=== PATIENT | female | born 1940 | race Caucasian/White ===

== ENCOUNTER 2024-02-21 08:19 | Day surgery (SDC) | payer MEDICARE, OTHER, SELFPAY ==
[2024-02-21] VITALS (19 sets, daily range): BP systolic 133–190; BP diastolic 54–80; BMI 23.0
[2024-02-21 09:09] LABS: Hematocrit 31.7 % (37.0-47.0); Hemoglobin 10.8 g/dL (12.0-16.0); Mean Corp Hgb Conc. 34.1 g/dL (33.0-37.0); Mean Corpuscular Hgb 42.4 pg (27.0-31.0); Mean Corpuscular Volume 124.3 fL (81.0-99.0); Mean Platelet Volume 9.9 fL (7.4-10.4); Platelet Count 405 10^3/uL (130-400); Red Blood Cell Count 2.55 10^6/uL (4.20-5.40); Red Cell Dist. Width 15.9 % (11.5-14.5); White Blood Cell Count 6.5 10^3/uL (4.8-10.8)
[2024-02-21 09:23] LABS: INR 1.73; PT 20.4 Sec (11.4-14.6)
[2024-02-21 09:41] LABS: Blood Urea Nitrogen 14 mg/dl (7-17); Carbon Dioxide 29 mmol/L (22-30); Chloride 102 mmol/L (98-107); Estimated Creatinine Clearance 60 ml/min; Glucose 102 mg/dl (70-99); Potassium 4.1 mmol/L (3.5-5.1); Sodium 138 mmol/L (135-145); eGFR > 60.00
--- NOTE | 2024-02-21 11:21 | ITS.CL.PACE ---
[employer] - Pacemaker Implant
Pacemaker Implant
Procedure Report:
Date of Procedure: February 21, 2024
Patient : 1940
Procedure: Pacemaker Implantation.
Indication: Sick sinus syndrome
Implants:
Pulse Generator: Medtronic; Model# W1 DR 01; SN: [id number]
RA Lead: Medtronic; Model# 4574; SN: [id number]
RV Lead: Medtronic; Model# 4074; SN: [id number]
Technique: A time out was performed. The procedure site was identified. The patient was anesthetized by the anesthesia service. Preoperative sedation was administered. The patient was prepped and draped in the usual fashion. Local anesthetic was
applied to the left prepectoral subcutaneous tissue. A 3 inch incision was made 2.5 inches below the left clavicle. A subcutaneous pocket was created with blunt and sharp dissection and hemostasis controlled with Bovie cautery. The left axillary
vein was accessed within the pocket without difficulty. Hemostasis was excellent. The leads were introduced with 7 Fr hemostatic peel away introducer sheaths. The ventricular lead was placed at the right ventricular apex. The atrial lead was placed
in the right atrial appendage. 10 volt pacing did not capture the diaphragm. The leads were secured to the pectoralis muscle and fascia. The leads were appropriately attached to the device. The pocket was irrigated with antibiotic solution. The
device and leads were placed in the pocket. The incision was closed in three layers with absorbable suture. The estimated blood loss was minimal. There were no complications.
Lead Analysis:
RA lead: P: 1.2 mV; Threshold: 0.75 V @ 0.5 ms; Impedance: 608 ohms.
RV lead: R: 8.9 mV; Threshold: 0.5 V @ 0.5 ms; Impedance: 950 ohms.
Final Programming: AAIR�DDDR 6030
Conclusion: Uncomplicated Medtronic pacemaker implant.
Recommendation: Routine post pacemaker care.
[2024-02-21] MEDS: ANCEF 5 IV (16:52)
[2024-02-21] MEDS: TYLENOL 650 MG PO ×2 (17:07→21:26)
--- NOTE | 2024-02-21 18:45 | PTCARENOTE ---
Received pt from cath lab radiology technician via , accompanied by cath lab radiology technician staff. Pt AAOx3,PENN; LUE immobilizer in place. Pt transferred to be with minimal assistance, no c/o weakness/dizziness. VSS. PLaced on [id number] rhythm. On room air- pulse ox 96%,
no SOB noted; pt with occ dry cough. Abd soft, non-tender. Pt DTV; instructed to call for assistance to BR. Lt ACW Aquacell dsg intact; old drainage noted. Circ/neuro check to JEANINE DAS. Oriented to 4East, currently resting comfortably. Will
continue to monitor.
[2024-02-21] MEDS: ZESTRIL 5 MG PO (21:27)
[2024-02-21] MEDS: LOPRESSOR 50 MG PO (21:30)
[2024-02-21] MEDS: CRESTOR 10 MG PO (23:07)
[2024-02-21] MEDS: HYDREA 500 MG PO (23:08)
[2024-02-21] MEDS: CARDIZEM CD 180 MG PO (23:14)
[2024-02-21] MEDS: PACERONE 100 MG PO (23:14)
[2024-02-22] MEDS: ANCEF 5 IV (00:56)
[2024-02-22 03:48] VITALS: BP 156/73
[2024-02-22 05:56] LABS: Hematocrit 29.7 % (37.0-47.0); Hemoglobin 10.3 g/dL (12.0-16.0); Mean Corp Hgb Conc. 34.7 g/dL (33.0-37.0); Mean Corpuscular Hgb 42.6 pg (27.0-31.0); Mean Corpuscular Volume 122.7 fL (81.0-99.0); Mean Platelet Volume 9.8 fL (7.4-10.4); Platelet Count 377 10^3/uL (130-400); Red Blood Cell Count 2.42 10^6/uL (4.20-5.40); Red Cell Dist. Width 15.2 % (11.5-14.5); White Blood Cell Count 9.4 10^3/uL (4.8-10.8)
[2024-02-22 06:11] LABS: INR 1.67; PT 19.8 Sec (11.4-14.6)
[2024-02-22 06:37] LABS: Blood Urea Nitrogen 11 mg/dl (7-17); Calcium 8.8 mg/dl (8.4-10.2); Carbon Dioxide 26 mmol/L (22-30); Chloride 103 mmol/L (98-107); Estimated Creatinine Clearance 70 ml/min; Glucose 121 mg/dl (70-99); Magnesium 2.1 mg/dl (1.6-2.3); Potassium 4.3 mmol/L (3.5-5.1); Sodium 137 mmol/L (135-145); eGFR > 60.00
[2024-02-22] MEDS: LOW STRENGTH ASPIRIN 81 MG PO (09:06)
[2024-02-22] MEDS: LOPRESSOR 50 MG PO (09:06)
[2024-02-22] MEDS: PACERONE 100 MG PO (09:06)
[2024-02-22] MEDS: FLUSH (NSS) 1 FLUSH IV (09:08)
[2024-02-22] MEDS: HYDREA 500 MG PO (09:08)
--- NOTE | 2024-02-22 09:31 | W.PN.CARDCBS ---
Addendum entered and electronically signed by Isac Wilson MD 02/22/24 10:34:
patient seen and examined
agree with EYEGLASS FITTER note
agree with director social service assessment
spoke with daughter by phone this morning communicating details of procedure
exam:
heent ncat
jvp 6
aao x 3
feels better
site cdi no hematoma
remainder of exam per EYEGLASS FITTER note
Impression:
Symptomatic SSS with syncope
PAF prior PVI 2019
PAT post LAT ablation 03/01/23
HTN
HLD
mild-mod AI
Anemia
Thrombocythemia
RBBB
epistaxis
Plan:
post DC PPM 02/21/24
site stable with marked old drainage
tele Apaced with RBBB
CXR no PTX
Resume Coumadin tonight, Check INR on Tue goal 2-3
continue amiodarone, metoprolol, diltiazem
Activity restrictions reviewed
inc check dca 1 week
home today
Original Note:
Today's Communication / Plan
-
stable for d/c home
Impression / Plan
-
PCP: Dr. Tony
CDY: Krunal Villa MD
Impression:
Symptomatic SSS with syncope
PAF prior PVI 2019
PAT post LAT ablation 03/01/23
HTN
HLD
mild-mod AI
Anemia
Thrombocythemia
RBBB
epistaxis
Plan:
post DC PPM 02/21/24
site stable with marked old drainage
tele Apaced with RBBB
CXR no PTX
Resume Coumadin tonight, Check INR on Tue goal 2-3
continue amiodarone, metoprolol, diltiazem
Activity restrictions reviewed
inc check dca 1 week
home today
Progress Note - Refrigerator Mover
Subjective
Date of Service: February 22, 2024
no cp, sob
Objective
Labs:
02/22/24 05:41
02/22/24 05:41
Labs
Hgb 10.3 g/dL (12.0-16.0) L 02/22/24 05:41
Hct 29.7 % (37.0-47.0) L 02/22/24 05:41
Plt Count 377 10^3/uL (130-400) 02/22/24 05:41
PT 19.8 Sec (11.4-14.6) H 02/22/24 05:41
INR 1.67 02/22/24 05:41
Sodium 137 mmol/L (135-145) 02/22/24 05:41
Potassium 4.3 mmol/L (3.5-5.1) 02/22/24 05:41
BUN 11 mg/dl (7-17) 02/22/24 05:41
Creatinine 0.6 mg/dL (0.6-1.0) 02/22/24 05:41
Glucose 121 mg/dl (70-99) H 02/22/24 05:41
Vital Signs and I&O:
Vital Signs
Temp Pulse Resp BP Pulse Ox
97.7 F 61 18 156/73 93
02/22/24 03:48 02/22/24 03:48 02/22/24 03:48 02/22/24 03:48 02/22/24 03:48
Vital Signs
Temp Pulse Resp BP Pulse Ox
97.7 F 61 18 156/73 93
02/22/24 03:48 02/22/24 03:48 02/22/24 03:48 02/22/24 03:48 02/22/24 03:48
Intake & Output
02/20/24 02/21/24 02/22/24 02/23/24
06:59 06:59 06:59 06:59
Intake Total 480 / 480
Balance 480 / 480
Physical Exam
Physical Exam
NAD< AOX3
S1, S2, RRR, II/ diastolic murmur
CTAB, non labored
SNTND Bsx4
L CW Aquacel dressing marked old drainage, no HT
--- NOTE | 2024-02-22 10:24 | CM ---
Patient seen bedside, initial assessment completed. Patient reports she resides alone in a two story home, washer and dryer in the basement. Patient reports two step to enter her home, denies the use of DME and reports she has no issues with
balance. Patient reports her daughter lives in [place] and patient will be moving from her private home to a shelter community in [place] in May. Patient denies VN or SNF history. Patient confirms PCP Latia Tony, pharmacy [facility]
[place], confirms she has prescription coverage. CM offered VN to patient, patient declines. Patient reports her neighbor will be bringing her home and if she needed any assistance, her neighbors are there to assist. Patient declines CM calling family
members, reports she feels good about discharging home. CM reviewed IMM, signed, placed in chart. CM will continue to follow for discharge planning needs.
Plan; home no needs, declining VN.
[2024-02-22 11:39] VITALS: BP 156/67
--- NOTE | 2024-02-22 12:51 | W.DS.TRANS ---
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
-
Discharge Instructions:
Discharge Diagnosis/Procedures Pacemaker implant
Diet Low Cholesterol
Driving Restrictions No driving for 1 week
Bathing Restrictions OK to Shower
Blood Work Check INR on Monday
Instructions:
Stand-Alone Forms: DC Inst - Implanted Device
Changes to Home Medications: No
Discharge Medications:
DC Medications w/original date entered in [employer]
aspirin 81 mg chewable tablet (Robbie Chewable Low Dose Aspirin) 81 mg PO DAILY Blood clot prevention/tx 08/06/20
ferrous sulfate 27 mg iron tablet 27 mg PO HS Supplement ##0 08/06/20
hydroxyurea 500 mg capsule 500 mg PO .[id number] Hematological condition 08/06/20
lisinopril 5 mg tablet 5 mg PO HS Blood pressure 08/06/20
multivitamin 2 ea PO HS Supplement 08/06/20
rosuvastatin 10 mg tablet 10 mg PO DAILY High cholesterol 08/06/20
warfarin 2 mg tablet 2 mg PO MOTUWEFRSA 02/16/23
amiodarone 100 mg tablet 100 mg PO BID 02/21/24
cholecalciferol (vitamin D3) 25 mcg (1,000 unit) capsule (Vitamin D3) 25 mcg PO DAILY 02/21/24
diltiazem HCl 180 mg capsule,extended release 24 hr 180 mg PO HS 02/21/24
hydroxyurea 500 mg capsule 500 mg PO SA 02/21/24
metoprolol tartrate 50 mg tablet 50 mg PO BID 02/21/24
sodium chloride 0.65 % nasal spray aerosol ([place] Saline) 1 spray intranasal DAILYPRN PRN NASAL DRYNESS 02/21/24
warfarin 1 mg tablet 1 mg PO SUTH 02/21/24
Home Medication Changes
Pending Results: No
[2024-02-22] MEDS: TYLENOL 650 MG PO (13:36)
== END 2024-02-22 13:38 | disposition home or self-care (01) ==
LOC: CATH 08:19
PROVIDERS: Nurse Practitioner; Nurse Practitioner Adult Health; ATTENDING PHYSICIAN Internal Medicine Cardiovascular Disease; FAMILY PHYSICIAN Internal Medicine
DX: I49.5 Sick sinus syndrome (principal); R55 Syncope and collapse; I48.0 Paroxysmal atrial fibrillation; I10 Essential (primary) hypertension; E78.5 Hyperlipidemia, unspecified; I35.1 Nonrheumatic aortic (valve) insufficiency; D64.9 Anemia, unspecified; D69.6 Thrombocytopenia, unspecified; I45.10 Unspecified right bundle-branch block; R04.0 Epistaxis; Z79.82 Long term (current) use of aspirin; Z79.01 Long term (current) use of anticoagulants
CPT/HCPCS: 33208; 71045; 80048; 83735; 85027; 85610; 93005; C1785; C1892; C1898; Q9967